=== PATIENT | male | born 1960 | race Caucasian/White ===

== ENCOUNTER → 2016-11-04 | Outpatient (CLI) | payer OTHER ==
[~2016-11-04] MED LIST: ADVAIR HFA120 INHALA IH; ALBUTEROL SULF8.5 GM IH; ALBUTEROL17 GM IH; AMBIEN5 M1 PO; ASPIRIN81 M1 PO; ASPIRIN81 M2 PO; COATED ASPIRIN325 MG PO; COLCRYS0.6 MG PO; COMBIVENT INH14.7 GM IH; DILAUDID4 MG PO; DOXYCYCLINE HY100 MG PO; HCTZ PO; HYDROCHLOROTH12.5 M1 PO; HYDROCHLOROTH12.5 M3 NG; KLONOPIN0.5 M1 NG; KLONOPIN0.5 M1 PO; LO-DOSE ASPIRIN81 M2 PO; LOPID600 M1 PO; LUNESTA1 MG PO; LYRICA50 MG PO; METOPROLOL SUCC25 MG PO; NORCO 7.5/321 TABLET PO; PLAVIX75 MG PO; PRAVACHOL20 MG PO; PREDNISONE10 MG PO; PROTONIX40 MG PO; SPIRIVA1 INHALATI IH; TENORMIN50 MG PO; TYLENOL325 M1 PO; VICODIN,LORT1 TABLET PO; ZANTAC150 MG PO; ZESTRIL40 MG PO
== END | disposition home or self-care (01) ==
LOC: CDC 08:44
DX: Z01.810 Encounter for preprocedural cardiovascular examination (principal); S46.112A Strain of muscle, fascia and tendon of long head of biceps, left arm, initial encounter; S53.492A Other sprain of left elbow, initial encounter; M25.522 Pain in left elbow
CPT/HCPCS: 93000

== ENCOUNTER 2016-11-06 08:22 | Day surgery (SDC) | payer OTHER ==
[~2016-11-06] VITALS: Ht 177.8 cm; Wt 102.2 kg
[~2016-11-06 08:22] MED LIST changes: -LO-DOSE ASPIRIN81 M2 PO
[2016-11-06 08:50] VITALS: BP 225/124
[2016-11-06 09:00] VITALS: BP 194/100
[2016-11-13] MEDS ORDERED: LO-DOSE ASPIRIN81 M2 PO (14:09)
== END 2016-11-06 09:49 | disposition home or self-care (01) ==
LOC: SDC
PROC: 0LM40ZZ Reattachment of Left Upper Arm Tendon, Open Approach (ICD-10-PCS; principal; 2016-11-06)
DX: S53.402A Unspecified sprain of left elbow, initial encounter (principal); Z53.8 Procedure and treatment not carried out for other reasons; I10 Essential (primary) hypertension; Z95.1 Presence of aortocoronary bypass graft

== ENCOUNTER 2016-11-18 10:59 | Day surgery (SDC) | payer OTHER ==
[~2016-11-18] VITALS: Ht 177.8 cm; Wt 99.8 kg
[~2016-11-18 10:59] MED LIST changes: +LO-DOSE ASPIRIN81 M2 PO
[2016-11-18 11:52] VITALS: BP 176/105
[2016-11-18 19:00] VITALS: BP 166/96
[2016-11-18 19:25] VITALS: BP 160/90
== END 2016-11-18 19:45 | disposition home or self-care (01) ==
LOC: SDC 10:59
PROC: 0KQ Muscles, Repair (ICD-10-PCS; principal; 2016-11-18)
DX: S46.202A Unspecified injury of muscle, fascia and tendon of other parts of biceps, left arm, initial encounter (principal); I10 Essential (primary) hypertension; M19.90 Unspecified osteoarthritis, unspecified site; J44.9 Chronic obstructive pulmonary disease, unspecified; F17.200 Nicotine dependence, unspecified, uncomplicated; Z79.82 Long term (current) use of aspirin
CPT/HCPCS: J0360; J0690; J1170; J2250; J2405; J3010; S0020

== ENCOUNTER 2017-05-17 16:36 | Emergency (ER) | payer OTHER ==
[~2017-05-17] VITALS: Ht 180.3 cm; Wt 95.3 kg
[2017-05-17 17:28] LABS: HEMATOCRIT 46.6 % (38.0-50.0); MCH 29.5 PG (29.0-34.0); MCHC 33.5 G/DL (30.0-36.0); MCV 88.1 FL (86-99); MEAN PLAT.VOLUME 10.7 uM^3 (9.0-12.4); PLATELET COUNT 165 K/uL (156-360); RBC DIS.WIDTH-CV 12.7 % (11.8-14.6); RBC DIS.WIDTH-SD 41.1 % (39-53); RED BLOOD COUNT 5.29 M/uL (4.00-5.50); WHITE BLOOD COUNT 10.7 K/uL (4.1-10.2)
[2017-05-17 17:39] LABS: CHLORIDE 102 mEq/L (99-109); POTASSIUM 4.3 mEq/L (3.7-5.4); SODIUM 139 mEq/L (136-147)
[2017-05-17 17:41] LABS: GLUCOSE 109 mg/dL (70-99)
[2017-05-17 17:43] LABS: ANION GAP 12 MEQ/L (2-14)
[2017-05-17 17:45] LABS: GFR ESTIMATE (CALCULATED) > 59 mL/min/
[2017-05-17 17:46] LABS: UREA NITROGEN (BUN) 11 mg/dL (9-23)
[2017-05-17 17:51] LABS: TROP-I INTERPRETATION NEGATIVE; TROPONIN-I < 0.01 ng/mL (0.0-0.30)
[2017-05-17] MEDS ORDERED: PREDNISONE20 MG PO (18:00)
[2017-05-17] MEDS ORDERED: LEVAQUIN750 MG PO (18:00)
[2017-05-17] MEDS ORDERED: VENTOLIN HFA18 GM IH (18:00)
[2017-05-17 18:49] VITALS: BP 102/69
== END 2017-05-17 18:50 | disposition home or self-care (01) ==
LOC: EXP 16:36 → EME 16:36 → EXP 18:50
DX: J18.9 Pneumonia, unspecified organism (principal); I10 Essential (primary) hypertension; Z95.1 Presence of aortocoronary bypass graft; Z79.82 Long term (current) use of aspirin; F17.200 Nicotine dependence, unspecified, uncomplicated
CPT/HCPCS: 71020; 80048; 84484; 85027; 93005; 94640; 99281; 99284; J7512

== ENCOUNTER 2017-08-25 12:07 | Emergency (ER) | payer OTHER ==
[~2017-08-25] VITALS: Ht 180.3 cm; Wt 101.2 kg
[~2017-08-25 12:07] MED LIST changes: +LEVAQUIN750 MG PO; +PREDNISONE20 MG PO; +VENTOLIN HFA18 GM IH
[2017-08-25] MEDS ORDERED: HYDROMORPHONE HC4 MG PO (12:44)
[2017-08-25 15:16] VITALS: BP 222/102
== END 2017-08-25 15:18 | disposition home or self-care (01) ==
LOC: EME 12:07
DX: M70.51 Other bursitis of knee, right knee (principal); I10 Essential (primary) hypertension; Z95.1 Presence of aortocoronary bypass graft; Z79.82 Long term (current) use of aspirin; F17.200 Nicotine dependence, unspecified, uncomplicated
CPT/HCPCS: 73564; 93971; 99281; 99283; J3010

== ENCOUNTER 2018-04-11 12:00 | Emergency (ER) | payer OTHER ==
[~2018-04-11] VITALS: Ht 180.3 cm; Wt 103.2 kg
[~2018-04-11 12:00] MED LIST changes: +HYDROMORPHONE HC4 MG PO
[2018-04-11 12:13] VITALS: BP 122/85
== END 2018-04-11 14:44 | disposition left against medical advice (07) ==
LOC: EME 12:00
DX: M25.531 Pain in right wrist (principal); M79.641 Pain in right hand; Z88.6 Allergy status to analgesic agent
CPT/HCPCS: 73090; 73110; 73130; 80048; 85027; 85651; 86140

== ENCOUNTER 2018-04-17 15:01 | Emergency (ER) | payer OTHER ==
[~2018-04-17] VITALS: Ht 180.3 cm; Wt 105.0 kg
[2018-04-17 15:34] LABS: HEMATOCRIT 45.9 % (38.0-50.0); HEMOGLOBIN 15.6 G/DL (12.5-16.6); MCH 29.1 PG (29.0-34.0); MCV 85.5 FL (86-99); PLATELET COUNT 193 K/uL (156-360); RBC DIS.WIDTH-CV 13.2 % (11.8-14.6); RBC DIS.WIDTH-SD 41.2 % (39-53); RED BLOOD COUNT 5.37 M/uL (4.00-5.50); WHITE BLOOD COUNT 12.5 K/uL (4.1-10.2)
[2018-04-17 15:45] LABS: ALBUMIN 4.1 g/dL (3.2-4.8); CHLORIDE 109 mEq/L (99-109); POTASSIUM 4.4 mEq/L (3.7-5.4); SODIUM 143 mEq/L (136-147)
[2018-04-17 15:47] LABS: GLUCOSE 130 mg/dL (70-99)
[2018-04-17 15:49] LABS: TOTAL BILIRUBIN 0.4 mg/dL (0.0-1.0)
[2018-04-17 15:51] LABS: ALKALINE PHOSPHATASE 81 IU/L (3-129); GFR ESTIMATE (CALCULATED) > 59 mL/min/ (58.99-99999)
[2018-04-17 15:52] LABS: UREA NITROGEN (BUN) 13 mg/dL (9-23)
[2018-04-17 15:53] LABS: AST (GOT) 16 IU/L (2-34); ERTH.SED.RATE 35 MM/HR (0-20)
[2018-04-17 15:54] LABS: ALT (GPT) 16 IU/L (3-49)
[2018-04-17 17:12] LABS: C-REACTIVE PROTEIN 20.4 MG/L (0-10)
[2018-04-17] MEDS ORDERED: ULTRAM50 MG PO (17:22)
[2018-04-17] MEDS ORDERED: KEFLEX500 MG PO (17:22)
[2018-04-17 17:38] VITALS: BP 145/88
== END 2018-04-17 17:45 | disposition home or self-care (01) ==
LOC: EME 15:01
PROVIDERS: Nurse Practitioner Family
DX: L03.113 Cellulitis of right upper limb (principal); M79.641 Pain in right hand; M25.531 Pain in right wrist; M25.431 Effusion, right wrist; M54.2 Cervicalgia; I10 Essential (primary) hypertension; I25.2 Old myocardial infarction; Z95.1 Presence of aortocoronary bypass graft; Z79.82 Long term (current) use of aspirin; F17.200 Nicotine dependence, unspecified, uncomplicated
CPT/HCPCS: 73110; 73130; 80053; 83605; 85027; 85651; 86140; 87040; 99281; 99284